=== PATIENT | male | born 1970 | race African-American/Black ===

== ENCOUNTER 2018-07-27 23:51 | Emergency (ER) | payer OTHER ==
[~2018-07-27] VITALS: Ht 185.4 cm; Wt 121.0 kg
[2018-07-28] MEDS ORDERED: DIPHENHYDRAMINE 50MG CAPSULE PO ONE (03:15)
[2018-07-28 03:24] VITALS: BP 179/107
[2018-07-28 03:50] LABS: CHLORIDE 106 mEq/L (98-107)
[2018-07-28 03:57] LABS: HEMATOCRIT. 44.8 % (42.0-52.0); HEMOGLOBIN. 15.4 g/dL (14.0-18.0); LYMPHOCYTES % 24.1 % (20.0-50.0); MEAN CORPUSCULAR HEMOGLOBIN 32.9 pg (28.0-32.0); MEAN CORPUSCULAR VOLUME 95.8 fL (80.0-94.0); MEAN PLATELET VOLUME 8.4 fl (7.4-10.4); MONOCYTES % 5.6 % (2.0-8.0); NEUTROPHILS % 66.1 % (40.0-76.0); PLATELET 193 x1000/uL (130-400); RED BLOOD CELL COUNT 4.67 mill/uL (4.7-6.1); RED CELL DISTRIBUTION WIDTH 13.7 % (11.6-14.6)
[2018-07-28 03:58] LABS: EOSINOPHILS % 3.2 % (0.0-5.0)
== END 2018-07-28 04:52 | disposition left against medical advice (07) ==
LOC: ER 23:51
DX: T45.0X5A Adverse effect of antiallergic and antiemetic drugs, initial encounter (principal); I10 Essential (primary) hypertension; Y92.89 Other specified places as the place of occurrence of the external cause
CPT/HCPCS: 36415; 80048; 84484; 85025; 93005; 99285; Q0163

== ENCOUNTER 2019-03-21 01:42 | Emergency (ER) | payer OTHER ==
[~2019-03-21] VITALS: Ht 185.4 cm; Wt 134.0 kg
[2019-03-21] MEDS ORDERED: IPRATROPIUM/ALBUTEROL 0.5-3(2.5)MG/3ML NEB HHN ONE ×3 (03:45→05:15)
[2019-03-21] MEDS ORDERED: METHYLPREDNISOLONE SOD SUCC 125 MG/2 ML VIAL IV ONE (03:45)
[2019-03-21 05:35] VITALS: BP 160/103
== END 2019-03-21 05:54 | disposition home or self-care (01) ==
LOC: ER 01:42
DX: J45.909 Unspecified asthma, uncomplicated (principal)
CPT/HCPCS: 71045; 94640; 96372; 99285; J2930; J7620; Z7610